=== PATIENT | female | born 1965 | race Caucasian/White ===

== ENCOUNTER 2024-07-08 06:19 | Day surgery (SDC) | payer OTHER, SELFPAY ==
[2024-06-24 11:30] LABS: Hemoglobin 13.7 g/dL (12.0-16.0); Mean Corp Hgb Conc. 34.3 g/dL (33.0-37.0); Mean Corpuscular Hgb 30.6 pg (27.0-31.0); Mean Corpuscular Volume 89.3 fL (81.0-99.0); Mean Platelet Volume 11.1 fL (7.4-10.4); Platelet Count 191 10^3/uL (130-400); Red Blood Cell Count 4.48 10^6/uL (4.20-5.40); Red Cell Dist. Width 12.1 % (11.5-14.5); White Blood Cell Count 5.8 10^3/uL (4.8-10.8)
[2024-06-24 12:34] VITALS: BMI 23.4
[2024-07-08 08:00] VITALS: BMI 23.4
[2024-07-08 08:01] VITALS: BP 135/84
[2024-07-08] MEDS: NORMOSOL-R/PLASMALYTE-A 1000 IV (08:11)
[2024-07-08 10:30] VITALS: BP 113/65; BP 135/84
[2024-07-08 10:45] VITALS: BP 120/68
[2024-07-08 11:05] VITALS: BP 129/83
[2024-07-08 11:35] VITALS: BP 124/79
== END 2024-07-08 11:50 | disposition home or self-care (01) ==
LOC: SDS 06:19
PROVIDERS: ATTENDING PHYSICIAN Otolaryngology; FAMILY PHYSICIAN Nurse Practitioner Adult Health
DX: J35.1 Hypertrophy of tonsils (principal); R09.A2 Foreign body sensation, throat
CPT/HCPCS: 42826; 88304; 36415; 85027; 93005